=== PATIENT | female | born 1940 | race Caucasian/White ===

== ENCOUNTER 2017-05-26 14:16 | Outpatient (CLI) | END 2017-05-26 15:33 | disposition home or self-care (01) ==

== ENCOUNTER 2017-05-27 16:55 | Emergency (ER) | END 2017-05-27 21:22 | disposition left against medical advice (07) ==

== ENCOUNTER 2017-05-28 11:15 | Inpatient (IN) | END 2017-05-31 14:14 | disposition home or self-care (01) | DRG 435 ==

== ENCOUNTER 2017-06-03 19:46 | Inpatient (IN) | END 2017-06-14 18:55 | disposition home health service (06) | DRG 438 ==